=== PATIENT | male | born 1985 | race Caucasian/White ===

== ENCOUNTER 2025-08-10 07:52 | Day surgery (SDC) | payer OTHER, SELFPAY ==
[2025-07-28 11:07] VITALS: BMI 24.0
--- NOTE | 2025-08-10 08:15 | WPDHPUPDATE1 ---
History and Physical Update Update Date/Time: 08/10/25 08:15 History and Physical has been reviewed, including an updated exam of the patient. There are NO changes in the patient's condition. Risks, benefits, and alternatives have been discussed and questions answered. Patient agrees to proceed with procedure.
--- NOTE | 2025-08-10 08:24 | P.PNAN_ITS ---
Anes - Initial Pre Proc Eval Procedure: Operation Date: 08/10/25 09:30 Proposed Procedures p Bilateral Nasal Endoscopy, Transnasal Adenoidectomy - Sloan Cochran MD s Eustachian Tube Balloon Dilation Bilateral Ear - Sloan Cochran MD Date/Time: 08/10/25 08:24 Surgeon: Sloan Cochran MD Pre Op Diagnosis: Adenoid Hypertrophy, L&R Eustachian Tube Disorder Patient Data Age: 40 Gender: M Height: 1.78 m Weight: 75.8 kg Allergies Allergy/AdvReac Type Severity Reaction Status Date / Time No Known Allergies Allergy Verified 07/28/25 11:06 Home Medications ?Medication ?Instructions ?Recorded ?Confirmed ?Type fluticasone propionate 50 2 spray intranasal BID #16 m L 07/14/25 07/28/25 Rx mcg/actuation nasal spray,suspension (Flonase Allergy Relief) Patient hx anesthesia problems: none Family hx anesthesia problems: none Results Review: All pre-operative results and documents have been reviewed as part of the pre- operative evaluation. [facility] Social History Social History Smoking status: Former smoker Tobacco type: cigarettes Second hand tobacco smoke exposure: Yes Substance use: current Substance use type: marijuana Other substance usage details: multiple times per week Living arrangements: alone Spiritual care concerns: No Anes - Eval Final PreProcedure Day of Procedure 08/10/25 08:24 Patient weight: normal Heart: regular rate and rhythm Lungs: clear to auscultation and normal air movement Airway: Mallampati scale Neurological: alert and oriented Last oral intake: >/= 8 hours ASA classification: II Emergent: no Anesthetic plan: proceed Anesthesia type and monitoring: general Results Review: All pre-operative results and documents have been reviewed as part of the pre- operative evaluation. Informed Consent: The patient's anesthetic plan and its attendant risks and benefits were discussed with the patient/family/POA. Questions were solicited and answers provided to the satisfaction of the patient/family/POA.
[2025-08-10 08:45] VITALS: BP 121/76; PULSE 60; RESP 16; TEMP 37.1; O2SAT 100
--- OUTSIDE RECORDS SUMMARY | 2025-08-10 08:45 | XMS_ITS | Clinical Summary ---
Author Organization [facility] Address [address] [place] [address] Phone Care Team Providers Care Engineering Supplies Sales Name Role Phone Provider, Unknown Primary Care Provider Unavaila ble Allergies No known active allergies Medications No known medications Active Problems No known active problems Family History Medical History Relation Name Comments Drug Abuse Father Depression Maternal Grandfather Depression Maternal Grandmother Relation Name Status Comments Brother 1 Alive Brother 2 Alive Father Maternal Grandfather Maternal Grandmother Mother Alive Son Jimmy (6) Alive Social History Tobacco Use Types Packs/Day Years Used Date Smoking Tobacco: Never Smokeless Tobacco: Never Tobacco Cessation:Counseling Given: Not Answered Alcohol Use Standard Drinks/Week Comments Yes 0 (1 standard drink = 0.6 oz pur e alcohol) Occasional drinker Sexually Active Control Partners Comments Not Currently Female Sex and Gender Information Value Date Recorded Sex Assigned at Not on file Legal Sex Male 8:41 PM CDT Gender Identity Not on file Sexual Orientation Not on file Last Filed Vital Signs Vital Sign Reading Time Taken Comments Blood Pressure 110/68 04/18/2021 5:43 PM CDT Pulse 80 04/18/2021 5:43 PM CDT Temperature 36.6 C (97.8 F) 04/18/2021 5:43 PM CDT Respiratory Rate 20 04/18/2021 5:43 PM CDT Oxygen Saturation 96% 04/18/2021 5:43 PM CDT Inhaled Oxygen Concentration - - Weight 83.9 kg (185 lb) 04/18/2021 5:43 PM CDT Height - - Body Mass Index - - Plan of Treatment Health Maintenance Due Date Last Done Comments Hepatitis C Virus (HCV) Screening 1986 Hepatitis B Immunization (1 of 3 - 19+ 3-dose series) 2005 Human Papillomavirus (HPV) Immunization (1 - 3-dose SCDM series) 2013 Influenza Immunization (#1) 2025 SARS-COV-2 Immunization ( - season) 2025 Respiratory Syncytial Virus (RSV) Immunization (Adult) (1 - 1-dose 75+ series) 2061 DTaP/Tdap/Td Immunization Discontinued 02/02/2016 TdaP Immunization Completed 02/02/2016 Meningococcal Immunization (ACWY) Aged Out No longer eligible based on patient's age to complete this topic Pneumococcal Immunization Combined Aged Out No longer eligible based on patient's age to complete this topic Rotavirus Immunization Aged Out No lo nger eligible based on patient's age to complete this topic Goals Goal Patient Goal Type Associated Problems Recent Progress Patient-Stated? 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 Insurance [facility] Care Teams Engineering Supplies Sales Relationship Specialty Start Date End Date Provider, Unknown UNKNOWN PCP - General 04/18/21
--- OUTSIDE RECORDS SUMMARY | 2025-08-10 08:45 | XMS_ITS | Clinical Summary ---
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 This disclosure is being madepursuant to the Care Everywhere program and may not contain all information available regarding this patient. Last updated 18.[employer] Allergies Active Allergy Reactions Criticality Noted Date Comments Hydrocodone-Acetaminophen 12/13/2016 Medications * Be aware that medications may not be up to date on this document. Alwaysverify current medications with the patient. ondansetron, disintegrating, (ZOFRAN ODT) 4 MG tabletIndicatio ns:Gastroenteri tis, acute Take 1 Tab by mouth every 8 hours as needed for Nausea/Vomiting Allow tablet to dissolve on the tongue 15 Tab 7 Active Additional Information Patient not taking.Reported on 05/31/2021 Social History Tobacco Use Types Packs/Day Years Used Date Smoking Tobacco: Never Smokeless Tobacco: Never PHQ-2 Answer Date Recorded PHQ2 TOTAL SCORE 0 05/31/2021 Sex and Gender Information Value Date Recorded Sex Assigned at Not on file Legal Sex Male 11:11 AM WIN[employer]ASS[employer] Gender Identity Not on file Sexual Orientation Not on file Last Filed Vital Signs Vital Sign Reading Time Taken Comments Blood Pressure 142/93 05/31/2021 9:21 AM CDT Pulse 88 05/31/2021 9:21 AM CDT Temperature 36.6 C (97.9 F) 05/31/2021 9:21 AM CDT Respiratory Rate 18 05/31/2021 9:21 AM CDT Oxygen Saturation 100% 05/31/2021 9:21 AM CDT Inhaled Oxygen Concentration - - Weight 81.6 kg (180 lb) 05/31/2021 9:21 AM CDT Height 177.8 cm (5' 10) 05/31/2021 9:21 AM CDT Body Mass Index 25.83 05/31/2021 9:21 AM CDT Plan of Treatment Health Maintenance Due Date Last Done Comments HIV SCREENING 2001 HEPATITIS C SCREENING 06/12/2004 DTAP/TDAP/TD VACCINES (1 - Tdap) 2005 HEPATITIS B VACCINE (1 of 3 - 19+ 3-dose series) 2005 HPV VACCINE (1 - 3-dose SCDM series) 2013 DEPRESSION SCREENING 10/14/2024 COVID-19 VACCINE (1 - 2023-2 5 season) 2025 INFLUENZA VACCINE (#1) 2025 ZOSTER VACCINE (1 of 2) 2036 HIB VACCINE Aged Out No longer eligi ble based on patient's age to complete this topic MENINGOCOCCAL (Group B) VACC INE SHARED DECISION-MAKING Aged Out No longer eligibl e based on patient's age to complete this topic MENINGOCOCCAL GROUPS A/C/Y/W VACCINE Aged Out No longer eligible b ased on patient's age to complete this topic PNEUMOCOCCAL VACCINE Aged Out No long er eligible based on patient's age to complete this topic Insurance [employer]
--- OUTSIDE RECORDS SUMMARY | 2025-08-10 08:45 | XMS_ITS | Clinical Summary ---
Author Organization [facility] [address] Address [address] [place] [address] Phone Care Team Providers Care [facility] Former Name Role Phone Balaji Og MD Primary Care Provider [phone] Allergies Active Allergy Reactions Criticality Noted Date Comments Hydrocodone-Acetaminophen Stomach upset Low 017 Medications No known medications Active Problems Problem Noted Date Diagnosed Date Skin tag 08/15/2023 Assessment & Plan (08/15/2023 6:29 PM CDT): Patient is very small skin tag on his penis at the base advised him this is very small is not as noticeable as he perceives it to be under no conditions via recommend trying to get removed because of sensitivity area great chance that this will return. See no benefit in therapy.. Gave him information from up-to-date today regarding skin tags. Hearing loss associated with syndrome of right e ar 08/15/2023 Assessment & Plan (08/15/2023 6:29 PM CDT): Patient complains of feeling like his right ear is congested I have examined him today is perfectly normal his Valsalva maneuver was perfect.. Is his perception is hearing loss he knows he that he tilts his head to the right when talking to people often so he can hear them better. Advised get audiology exam. Fatigue 11/16/2022 Assessment & Plan (11/16/2022 4:43 PM [employer]): Patient is concerned that he may have a testosterone deficiency he has a friend goes to a means clinic in test with numerous test.. Advised patient that demands clinics are not covered by insurance and a do multiple tests that are not routine required. Is a concern and I will get a testosterone level he understands source phone level has be drawn between 8 and 10:00 a.m. for any degree of accuracy.. Test is positive our referral on to Endocrinology Annual physical exam 11/16/2022 Assessment & Plan (11/16/2022 4:43 PM [employer]): 37-year-old gentleman not seen for least 5 years by me he is concerned about having ADHD and testosterone deficiency see assessment and plan. 37 years old I did get a lipid profile and BMP Attention deficit hyperactivity disorder (ADHD) 11/16/2022 Assessment & Plan (11/16/2022 4:42 PM [employer]): Patient advised me he was placed on medicine for ADHD proper around 9 or 11 years old. He was on medication very brief period of time wisdom other than like the idea of being on medication.. He is impression he may have ADHD. 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 Encounters Date Type Department Care Team Description 07/12/2025 Telephone [facility]) - [facility] Medicine ENT [id number] [place] [address] Medical Office Building [address] [place] [address] Milly Osman MD 07/12/2025 Telephone [facility] Medicine Otolaryngology [address] [place] [address] Adrienne Cottrell MS 06/30/2025 1:30 PM CDT Procedure visit [facility] Medicine Otolaryngology [address] [place] [address] Medical Office [address] [place] [address] Rock Dave Au.D. Sensorineural hearing loss (SNHL) of both ears (Primary Dx) 06/30/2025 1:00 PM CDT Office Visit [facility]) - [facility] Medicine ENT [address] [facility] Medical Office Building [address] [place] [address] Karla Thomas NP Sensation of plugged ear on both sides (Primary Dx); Post-nasal drip; Dysfunction of left eustachian tube; Sensorineural hearing loss (SNHL) of right ear with unrestricted hearing of left ear from Last 3 Months Immunizations Immunization Administration Dates Next Due Tdap 02/02/2016 Medical History Medical History Date Comments Dizziness na Tinnitus na Social History Tobacco Use Types Packs/Day Years Used Date Smoking Tobacco: Never Smokeless Tobacco: Never Tobacco Cessation:Counseling Given: Not Answered PHQ-2 Answer Date Recorded PHQ-2 Total Score (If total score is 3 or more points, staff should administer the PHQ-9) 0 11/16/2022 Sex and Gender Information Value Date Recorded Sex Assigned at Not on file Legal Sex Male 4:13 PM [employer] Gender Identity Not on file Sexual Orientation Not on file Obstetrics History Last Filed Vital Signs Vital Sign Reading Time Taken Comments Blood Pressure 108/72 06/30/2025 1:05 PM CDT Pulse 71 06/30/2025 1:05 PM CDT Temperature 36.6 C (97.8 F) 08/14/2023 2:46 PM CDT Respiratory Rate 16 08/14/2023 2:46 PM CDT Oxygen Saturation 97% 08/14/2023 2:46 PM CDT Inhaled Oxygen Concentration - - Weight 75.8 kg (167 lb) 06/30/2025 1:05 PM CDT Height - - Body Mass Index - - Plan of Treatment Health Maintenance Due Date Last Done Comments Hepatitis C Screening 1986 Varicella Vaccines (1 of 2 - 13+ 2-dose series) 1999 Hepatitis B Screening 2004 HPV Vaccines (1 - 3-dose SCD M series) 2013 Depression Screening 11/16/2023 11/16/2022 Regular Well Visit/Exam 18-64 11/16/2023 11/16/2022 Influenza Vaccine (#1) 2025 DTaP/Tdap/Td Vaccine (2 - Td or Tdap) 02/01/2026 02/02/2016 Pneumococcal vaccine <65 Aged Out No longer eligible based on patient's age to complete this topic Procedures Procedure Name Priority Date/Time Associated Diagnosis Comments AUDBASE RESULTS 06/30/2025 1:34 PM CDT from Last 3 Months Results * AudBase Results (06/30/2025 1:34 PM CDT) Provider Scanning AUDIOLOGY SERVICES ORDERABLES Final Result from Last 3 Months Insurance [employer] OPEN ACCESS [employer] OPEN ACCESS [facility] OPEN ACCESS Care Teams [facility] Former Relationship Specialty Start Date End Date Balaji Og MD PCP - General Internal Medicine 11/15/22
[2025-08-10] MEDS: LACTATED RINGERS 1,000 ML 30 ML IV CONT (09:00)
[2025-08-10] MEDS: ACETAMINOPHEN 500 MG TABLET 1000 MG PO (09:08)
[2025-08-10] MEDS: OXYMETAZOLINE HCL 0.05% NAS 15 ML BTL (*BKC) 1 SPRAY (10:29)
[2025-08-10 10:54] VITALS: BP 128/92; PULSE 66; RESP 10; TEMP 36.6; O2SAT 99
--- NOTE | 2025-08-10 11:03 | W.PM.PROC2 ---
Procedure Note - Detailed Date of Procedure 08/10/25 Pre-op Diagnosis Adenoid Hypertrophy, L&R Eustachian Tube Disorder, turbinate hypertrophy, bilateral eustachian tube dysfunction Post-op Diagnosis Same Procedure Performed 1. Nasal endoscopy 2. Bilateral eustachian tube balloon dilation 3. Bilateral inferior turbinate outfracture 4. Transnasal adenoidectomy Surgeon Sloan Cochran MD Anesthesia General Indications See above Findings Large hypertrophied turbinates these were outfractured for accessed, really be bulbous reno/adenoids these were reduced with Bovie electrocautery the, great cannulation of the bilateral eustachian tube/reno Description of Procedure Patient identified consent verified the preoperative holding area. Patient brought to the operating room. Time-out performed. General anesthesia induced endotracheal tube secured airway. Patient prepped draped position procedure confirmed 2nd time-out performed. Afrin-soaked pledgets placed in the nasal passages and removed 5 minutes later. Nasal endoscopy performed severe right septal deviation bilateral turbinate hypertrophy. Turbinates outfractured with a [place]. No bleeding. Bilateral reno/adenoids were cauterized using Bovie suction electrocautery setting of 20 good reduction was able to pull the redundant tissue out of the reno itself. [place] is were then cannulated bilaterally with the balloon and the balloon was inflated for 2 minutes and then released. No excess bleeding no complications. All the procedures were bilateral. Patient tolerated the procedure well minimal bleeding if any. No complications. Care the patient has been back to Anesthesiology. I performed all dictated portions of the procedure. Patient taken to PACU in good condition. Estimated Blood Loss 1 Drains No Packing No Pathology None sent Complications No immediate complications Condition Stable Disposition PACU [facility] Billing Surgery - Charge Forward: Surgery Billing
[2025-08-10 11:05] VITALS: BP 122/89; PULSE 72; RESP 16; O2SAT 96
--- NOTE | 2025-08-10 11:05 | WPDANESPN ---
Anes - Prog Note Post-Op Date/Time: 08/10/25 11:05 Cardiovascular status: normal Respiratory status: normal Airway patency: baseline Mental status: baseline Post-Op hydration status: normal Vital Signs: Last Vital Signs Temp 97.8 F 08/10/25 10:54 Pulse 66 08/10/25 10:54 Resp 10 L 08/10/25 10:54 BP 128/92 H 08/10/25 10:54 Pulse Ox 99 08/10/25 10:54 O2 Del Method Room Air 08/10/25 10:54 Pain Score (VAS): 0 Post-procedural complaints: none Patient Feedback: Patient satisfied with anesthetic care.
[2025-08-10 11:20] VITALS: BP 137/85; PULSE 56; RESP 12; O2SAT 100
[2025-08-10 11:25] VITALS: BP 120/82; PULSE 52; RESP 14; O2SAT 100
--- NOTE | 2025-08-10 11:48 | SUR.PHASEII ---
Patient meets criteria for discharge. He is getting dressed and waiting for ride.
== END 2025-08-10 12:30 | disposition home or self-care (01) ==
PROVIDERS: Visit Provider Otolaryngology
PROC: (CPT 69706; principal; 2025-08-10 09:30)
PROC: (CPT 69706; 2025-08-10 09:30)
DX: J35.2 Hypertrophy of adenoids (principal); J34.3 Hypertrophy of nasal turbinates; H69.93 Unspecified Eustachian tube disorder, bilateral
CPT/HCPCS: 69706; 30930; 42999